=== PATIENT | female | born 1980 | race Caucasian/White ===

== ENCOUNTER 2024-12-03 09:00 | Outpatient (CLI) | payer MEDICARE, MEDICAID, SELFPAY ==
--- OUTSIDE RECORDS SUMMARY | 2024-12-03 09:37 | XMS_ITS | Encounter Summary ---
Author Organization [facility] Address [address] [place] [address] Phone Care Team Providers Care Club Waiter/Waitress Name Role Phone Provider, Unknown Primary Care Provider Unavaila ble Encounter Details Date Type Department Care Team (Late st Contact Info) Description 09/04/2024 Lab Requisition [facility] Laboratory Services 1 [place] [address] Yevgeniy Lea MD [address] [place] [address] [address] [place] [address] Mild intellectual disabilities; Obesity, unspecified; Hyperlipidemia, unspecified Social History Tobacco Use Types Packs/Day Years Used Date Smoking Tobacco: Never Assessed Comments Unknown Sex and Gender Information Value Date Recorded Sex Assigned at Not on file Legal Sex Female 7:32 AM CRIMINAL JUSTICE SOCIAL WORKER Gender Identity Not on file Sexual Orientation Not on file documented as of this encounter Plan of Treatment Not on file documented as of this encounter Procedures Procedure Name Priority Date/Time Associated Diagnosis Comments HEMOGLOBIN A1C W/ ESTIMATED GLUCOSE Routine 09/04/2024 6:23 AM CRIMINAL JUSTICE SOCIAL WORKER Mild intellectual disabilities Obesity, unspecified Hyperlipidemia, unspecified CBC WITH AUTO DIFFERENTIAL Routine 09/04/2024 6:23 AM CRIMINAL JUSTICE SOCIAL WORKER Mild intellectual disabilities Obesity, unspecified Hyperlipidemia, unspecified THYROID STIMULATING HORMONE (TSH) Routine 09/04/2024 6:23 AM CRIMINAL JUSTICE SOCIAL WORKER Mild intellectual disabilities Obesity, unspecified Hyperlipidemia, unspecified LIPID PANEL Routine 09/04/2024 6:23 AM CRIMINAL JUSTICE SOCIAL WORKER Mild intellectual disabilities Obesity, unspecified Hyperlipidemia, unspecified CMP (COMPREHENSIVE METABOLIC PANEL) Routine 09/04/2024 6:23 AM CRIMINAL JUSTICE SOCIAL WORKER Mild intellectual disabilities Obesity, unspecified Hyperlipidemia, unspecified COMPLETE BLOOD COUNT (CBC) WITH DIFF Routine 09/04/2024 6:23 AM CRIMINAL JUSTICE SOCIAL WORKER Mild intellectual disabilities Obesity, unspecified Hyperlipidemia, unspecified documented in this encounter Results * (ABNORMAL) CBC WITH AUTO DIFFERENTIAL (09/04/2024 6:23 AM CRIMINAL JUSTICE SOCIAL WORKER) WBC 8.37 4.00 - 12.00 10(3)/mcL 09/04/2024 7:45 AM [facility] RBC 4.18 3.80 - 5.30 10(6)/mcL 09/04/2024 7:45 AM [facility] HEMOGLOBIN (HGB) 11.9(L) 12.0 - 15.8 g/dL 09/04/2024 7:45 AM [facility] HEMATOCRIT (HCT) 35.7(L) 36.0 - 47.0 % 09/04/2024 7:45 AM [facility] MCV 85.4 82.0 - 96.0 fL 09/04/2024 7:45 AM [facility] MCH 28.5 26.0 - 34.0 pg 09/04/2024 7:45 AM [facility] MCHC 33.3 31.0 - 36.0 g/dL 09/04/2024 7:45 AM [facility] PLATELET COUNT 297 140 - 440 10(3)/mcL 09/04/2024 7:45 AM [facility] RDW 13.1 11.8 - 15.5 % 09/04/2024 7:45 AM [facility] MPV 9.4(L) 9.7 - 12.4 fL 09/04/2024 7:45 AM [facility] NEUTROPHILS 65.6 47.0 - 73.0 % 09/04/2024 7:45 AM [facility] LYMPHOCYTES 25.8 18.0 - 42.0 % 09/04/2024 7:45 AM CRIMINAL JUSTICE SOCIAL WORKER [facility] MONOCYTES 5.9 4.0 - 12.0 % 09/04/2024 7:45 AM [facility] EOSINOPHILS 2.3 0.0 - 5.0 % 09/04/2024 7:45 AM [facility] BASOPHILS 0.4 0.0 - 1.0 % 09/04/2024 7:45 AM [facility] ABSOLUTE NEUTROPHILS 5.50 1.60 - 7.70 10(3)/[facility] 09/04/2024 7:45 AM [facility] ABSOLUTE LYMPHOCYTES 2.16 1.30 - 3.20 10(3)/[facility] 09/04/2024 7:45 AM [facility] ABSOLUTE MONOCYTES 0.49 0.20 - 1.00 10(3)/[facility] 09/04/2024 7:45 AM [facility] ABSOLUTE EOSINOPHIL 0.19 0.00 - 0.40 10(3)/[facility] 09/04/2024 7:45 AM [facility] ABSOLUTE BASOPHILS 0.03 0.00 - 0.10 10(3)/[facility] 09/04/2024 7:45 AM [facility] NRBC PER 100 WBC 0 09/04/19 7:45 AM [facility] Blood Venipuncture / Unknown 09/04/2024 6:23 AM CRIMINAL JUSTICE SOCIAL WORKER 09/04/2024 7:[address] [facility] us Yevgeniy Lea MD HEMATOLOGY ORDERABLES Final Re sult [facility] #1 [place] [address] * THYROID STIMULATING HORMONE (TSH) (09/04/2024 6:[address] [facility]) TSH 1.673 0.300 - 5.000 mIU/L 09/04/2024 8:24 AM [facility] Blood Venipuncture / Unknown 09/04/2024 6:23 AM CRIMINAL JUSTICE SOCIAL WORKER 09/04/2024 7:36 AM CRIMINAL JUSTICE SOCIAL WORKER Yevgeniy Lea MD CHEMISTRY ORDERABLES Final Res ult Performing Organization Address [facility] Co de Phone Number [facility] [address] [place] [address] * HEMOGLOBIN A1C W/ ESTIMATED GLUCOSE (09/04/2024 6:23 AM CRIMINAL JUSTICE SOCIAL WORKER) HGB-A1C 5.4 4.0 - 6.0 % 09/04/2024 9:17 AM CRIMINAL JUSTICE SOCIAL WORKER [facility] Est Average Glucose 108.3 mg/dL 09/04/2024 9:17 AM CRIMINAL JUSTICE SOCIAL WORKER [facility] Blood Venipuncture / Unknown 09/04/2024 6:23 AM CRIMINAL JUSTICE SOCIAL WORKER 09/04/2024 7:36 AM CRIMINAL JUSTICE SOCIAL WORKER Narrative [facility] - 09/04/2024 9:17 AM CRIMINAL JUSTICE SOCIAL WORKER HEMOGLOBIN A1C: DIABETIC PATIENTS: WELL-CONTROLLED: 6.2 - 7.0 INTERMEDIATE WELL-CONTROLLED: 7.0 - 9.0 POORLY-CONTROLLED: >9.0 Specimens containing greater than 5% of Hemoglobin F may result in lower than expected % HbA1C results. Yevgeniy Lea MD CHEMISTRY ORDERABLES Final Res ult Performing Organization Address [facility] Co de Phone Number [facility] [address] [place] [address] * LIPID PANEL (09/04/2024 6:23 AM CRIMINAL JUSTICE SOCIAL WORKER) CHOLESTEROL 125 <200 mg/dL 09/04/2024 8:06 AM CRIMINAL JUSTICE SOCIAL WORKER [facility] TRIGLYCERIDES 66 <150 mg/dL 09/04/2024 8:06 AM CRIMINAL JUSTICE SOCIAL WORKER [facility] HDL CHOLESTEROL 54 >40 mg/dL 8:06 AM CRIMINAL JUSTICE SOCIAL WORKER [facility] LDL 58 <130 mg/dL 09/04/2024 8:06 AM CRIMINAL JUSTICE SOCIAL WORKER [facility] VLDL 13 10 - 50 mg/dL 09/04/2024 8:06 AM [facility] CHOL/HDL RATIO 2.3 0.0 - 4.4 09/04/2024 8:06 AM [facility] NON-HDL CHOLESTEROL 71 <130 mg/dL 09/04/2024 8:06 AM [facility] Blood Venipuncture / Unknown 09/04/2024 6:23 AM CRIMINAL JUSTICE SOCIAL WORKER 09/04/2024 7:[address] [facility] us Yevgeniy Lea MD CHEMISTRY ORDERABLES Final Res ult [facility] [address] [place] [address] * (ABNORMAL) CMP (COMPREHENSIVE METABOLIC PANEL) (09/04/2024 6:23 AM CRIMINAL JUSTICE SOCIAL WORKER) SODIUM 141 136 - 145 mmol/L 09/04/2024 8:06 AM [facility] POTASSIUM 4.2 3.5 - 5.1 mmol/L 09/04/2024 8:06 AM [facility] CHLORIDE 105 98 - 107 mmol/L 09/04/2024 8:06 AM [facility] CO2, VENOUS 26 22 - 30 mmol/L 09/04/2024 8:06 AM [facility] ANION GAP 14.2 <18.0 mmol/L 09/04/2024 8:06 AM [facility] GLUCOSE 102(H) 70 - 99 mg/dL 09/04/2024 8:06 AM [facility] BUN 15 5 - 18 mg/dL 09/04/2024 8:06 AM [facility] CREATININE, BLOOD 0.91 0.60 - 1.00 mg/dL 09/04/2024 8:06 AM [facility] BUN/CREATININE RATIO 16 12 - 20 ratio 09/04/2024 8:06 AM [facility] TOTAL PROTEIN 7.2 6.0 - 8.0 g/dL 09/04/2024 8:06 AM [facility] ALBUMIN 4.3 3.5 - 5.0 g/dL 09/04/2024 8:06 AM [facility] A/G RATIO 1.5 1.0 - 2.2 09/04/2024 8:06 AM [facility] CALCIUM 9.4 8.7 - 10.5 mg/dL 09/04/2024 8:06 AM [facility] T BILI 0.6 0.2 - 1.2 mg/dL 09/04/2024 8:06 AM [facility] SGOT (AST) 32 6 - 42 U/L 09/04/2024 8:06 AM [facility] SGPT (ALT) 26 6 - 55 U/L 09/04/2024 8:06 AM [facility] ALKALINE PHOSPHATASE 75 40 - 150 U/L 09/04/2024 8:06 AM [facility] GFR, ESTIMATED >60 >=60 09/04/2024 8:06 AM [facility] Comment: Creatinine Clearance is the preferred criteria for selecting drug dose adjustments in renally impaired patients. The GFR is provided as additional pertinent clinical information. GFR is reported in mL/min/1.73 sq m. Calculation based on the Chronic Kidney Disease Epidemiology Collaboration (CKD- EPI) equation refit without adjustment for race. GFR, EST. >60 >=60 025 8:06 AM [facility] GFR, EST. NONAFRICAN >60 >=60 09/04/2024 8:06 AM [facility] Blood Venipuncture / Unknown 09/04/2024 6:23 AM CRIMINAL JUSTICE SOCIAL WORKER 09/04/2024 7:[address] [facility] us Yevgeniy Lea MD CHEMISTRY ORDERABLES Final Res ult [facility]1 [place] [address] documented in this encounter Visit Diagnoses Diagnosis Mild intellectual disabilities Obesity, unspecified Hyperlipidemia, unspecified documented in this encounter Additional Health Concerns Infection Onset Date Last Indicated Resolved Time Respiratory Rule-Out 09/10/2024 09/10/2024 025 12:16 AM CRIMINAL JUSTICE SOCIAL WORKER documented as of this encounter Care Teams Club Waiter/Waitress Relationship Specialty Start Date End Date Provider, Unknown UNKNOWN PCP - General 09/10/24 documented as of this encounter
--- OUTSIDE RECORDS SUMMARY | 2024-12-03 09:37 | XMS_ITS | Clinical Summary ---
Author Organization [facility] Address [address]1 [place] [address] Phone Care Team Providers Care Customer Development Representative Name Role Phone Provider, Unknown Primary Care Provider Unavaila ble Encounters Date Type Department Care Team Description 09/10/2024 [facility] 1 [place] [address] Yevgeniy Lea MD Contact with and (suspected) exposure to unspecified communicable disease; Acute cough 09/10/2024 Lab Requisition [facility] Laboratory Services 1 [place] [address] Yevgeniy Lea MD Contact with and (suspected) exposure to unspecified communicable disease; Acute cough 09/04/2024 Lab Requisition [facility] Laboratory Services 1 [place] [address] Yevgeniy Lea MD Mild intellectual disabilities; Obesity, unspecified; Hyperlipidemia, unspecified from Last 3 Months Social History Tobacco Use Types Packs/Day Years Used Date Smoking Tobacco: Never Assessed Comments Unknown Sex and Gender Information Value Date Recorded Sex Assigned at Not on file Legal Sex Female 7:32 AM STONE CARVER Gender Identity Not on file Sexual Orientation Not on file Plan of Treatment Not on file Procedures Procedure Name Priority Date/Time Associated Diagnosis Comments RSV,SARS-COV-2,INFLUE NZA A&B BY PCR Routine 09/10/2024 6:35 AM STONE CARVER Contact with and (suspected) exposure to unspecified communicable disease Acute cough CBC WITH AUTO DIFFERENTIAL Routine 09/04/2024 6:23 AM STONE CARVER Mild intellectual disabilities Obesity, unspecified Hyperlipidemia, unspecified COMPLETE BLOOD COUNT (CBC) WITH DIFF Routine 09/04/2024 6:23 AM STONE CARVER Mild intellectual disabilities Obesity, unspecified Hyperlipidemia, unspecified THYROID STIMULATING HORMONE (TSH) Routine 09/04/2024 6:23 AM STONE CARVER Mild intellectual disabilities Obesity, unspecified Hyperlipidemia, unspecified HEMOGLOBIN A1C W/ ESTIMATED GLUCOSE Routine 09/04/2024 6:23 AM STONE CARVER Mild intellectual disabilities Obesity, unspecified Hyperlipidemia, unspecified LIPID PANEL Routine 09/04/2024 6:23 AM STONE CARVER Mild intellectual disabilities Obesity, unspecified Hyperlipidemia, unspecified CMP (COMPREHENSIVE METABOLIC PANEL) Routine 09/04/2024 6:23 AM STONE CARVER Mild intellectual disabilities Obesity, unspecified Hyperlipidemia, unspecified from Last 3 Months Results * RSV,SARS-COV-2,INFLUENZA A&B BY PCR (09/10/2024 6:35 AM STONE CARVER) FLU A Negative Negative, Error 09/10/2024 11:00 AM STONE CARVER [facility] FLU B Negative Negative 09/10/2024 11:00 AM STONE CARVER [facility] RESP SYNC VIRUS Negative Negative 11:00 AM STONE CARVER [facility] SARSCOV2 NOT DETECTED (Reference Range for this test is Not Detected) 09/10/2024 11:00 AM STONE CARVER [facility] Comment:This test was perfor med by a Reverse Cotton Presser PCR Method. Swab Non-Phlebotomy Collection / Unknown 09/10/2024 6:35 AM STONE CARVER 09/10/2024 7:57 AM STONE CARVER us Yevgeniy Lea MD MICROBIOLOGY - GENERAL ORDERAB LES Final Result [facility] #1 [place] [address] * HEMOGLOBIN A1C W/ ESTIMATED GLUCOSE (09/04/2024 6:23 AM STONE CARVER) [facility] HGB-A1C 5.4 4.0 - 6.0 % 09/04/2024 9:17 AM [facility] Est Average Glucose 108.3 mg/dL 09/04/2024 9:17 AM [facility] Blood Venipuncture / Unknown 09/04/2024 6:23 AM STONE CARVER 09/04/2024 7:36 AM STONE CARVER Narrative [facility] - 09/04/2024 9:17 AM STONE CARVER HEMOGLOBIN A1C: DIABETIC PATIENTS: WELL-CONTROLLED: 6.2 - 7.0 INTERMEDIATE WELL-CONTROLLED: 7.0 - 9.0 POORLY-CONTROLLED: >9.0 Specimens containing greater than 5% of Hemoglobin F may result in lower than expected % HbA1C results. us Yevgeniy Lea MD CHEMISTRY ORDERABLES Final Res ult [facility] [address] [place] [address] * (ABNORMAL) CBC WITH AUTO DIFFERENTIAL (09/04/2024 6:23 AM STONE CARVER) [facility] WBC 8.37 4.00 - 12.00 10(3)/mcL 09/04/2024 7:45 AM [facility] RBC 4.18 3.80 - 5.30 10(6)/[facility] 09/04/2024 7:45 AM [facility] HEMOGLOBIN (HGB) 11.9(L) 12.0 - 15.8 g/dL 09/04/2024 7:45 AM [facility] HEMATOCRIT (HCT) 35.7(L) 36.0 - 47.0 % 09/04/2024 7:45 AM [facility] MCV 85.4 82.0 - 96.0 fL 09/04/2024 7:45 AM [facility] MCH 28.5 26.0 - 34.0 pg 09/04/2024 7:45 AM [facility] MCHC 33.3 31.0 - 36.0 g/dL 09/04/2024 7:45 AM [facility] PLATELET COUNT 297 140 - 440 10(3)/[facility] 09/04/2024 7:45 AM [facility] RDW 13.1 11.8 - 15.5 % 09/04/2024 7:45 AM [facility] MPV 9.4(L) 9.7 - 12.4 fL 09/04/2024 7:45 AM [facility] NEUTROPHILS 65.6 47.0 - 73.0 % 09/04/2024 7:45 AM [facility] LYMPHOCYTES 25.8 18.0 - 42.0 % 09/04/2024 7:45 AM [facility] MONOCYTES 5.9 4.0 - 12.0 % 09/04/2024 7:45 AM [facility] EOSINOPHILS 2.3 0.0 - 5.0 % 09/04/2024 7:45 AM [facility] BASOPHILS 0.4 0.0 - 1.0 % 09/04/2024 7:45 AM [facility] ABSOLUTE NEUTROPHILS 5.50 1.60 - 7.70 10(3)/[facility] 09/04/2024 7:45 AM [facility] ABSOLUTE LYMPHOCYTES 2.16 1.30 - 3.20 10(3)/[facility] 09/04/2024 7:45 AM [facility] ABSOLUTE MONOCYTES 0.49 0.20 - 1.00 10(3)/[facility] 09/04/2024 7:45 AM [facility] ABSOLUTE EOSINOPHIL 0.19 0.00 - 0.40 10(3)/[facility] 09/04/2024 7:45 AM [facility] ABSOLUTE BASOPHILS 0.03 0.00 - 0.10 10(3)/[facility] 09/04/2024 7:45 AM [facility] NRBC PER 100 WBC 0 09/04/19 7:45 AM [facility] Blood Venipuncture / Unknown 09/04/2024 6:23 AM STONE CARVER 09/04/2024 7:36 AM STONE CARVER Yevgeniy eLa MD HEMATOLOGY ORDERABLES Final Re sult Performing Organization Address City/[facility]/ZIP Co de Phone Number [facility] [address] [place] [address] * THYROID STIMULATING HORMONE (TSH) (09/04/2024 6:23 AM STONE CARVER) TSH 1.673 0.300 - 5.000 mIU/L 09/04/2024 8:24 AM STONE CARVER [facility] Blood Venipuncture / Unknown 09/04/2024 6:23 AM STONE CARVER 09/04/2024 7:36 AM STONE CARVER Yevgeniy Lea MD CHEMISTRY ORDERABLES Final Res ult Performing Organization Address City/[facility]/ZIP Co de Phone Number [facility] [address] [place] [address] * LIPID PANEL (09/04/2024 6:23 AM STONE CARVER) CHOLESTEROL 125 <200 mg/dL 09/04/2024 8:06 AM STONE CARVER [facility] TRIGLYCERIDES 66 <150 mg/dL 09/04/2024 8:06 AM STONE CARVER [facility] HDL CHOLESTEROL 54 >40 mg/dL 8:06 AM STONE CARVER [facility] LDL 58 <130 mg/dL 09/04/2024 8:06 AM STONE CARVER [facility] VLDL 13 10 - 50 mg/dL 09/04/2024 8:06 AM STONE CARVER [facility] CHOL/HDL RATIO 2.3 0.0 - 4.4 09/04/2024 8:06 AM STONE CARVER [facility] NON-HDL CHOLESTEROL 71 <130 mg/dL 09/04/2024 8:06 AM [facility] Blood Venipuncture / Unknown 09/04/2024 6:23 AM STONE CARVER 09/04/2024 7:36 AM STONE CARVER us Yevgeniy Lea MD CHEMISTRY ORDERABLES Final Res ult [facility] [address] [place] [address] * (ABNORMAL) CMP (COMPREHENSIVE METABOLIC PANEL) (09/04/2024 6:23 AM STONE CARVER) SODIUM 141 136 - 145 mmol/L 09/04/2024 8:06 AM [facility] POTASSIUM 4.2 3.5 - 5.1 mmol/L 09/04/2024 8:06 AM [facility] CHLORIDE 105 98 - 107 mmol/L 09/04/2024 8:06 AM [facility] CO2, VENOUS 26 22 - 30 mmol/L 09/04/2024 8:06 AM [facility] ANION GAP 14.2 <18.0 mmol/L 09/04/2024 8:06 AM [facility] GLUCOSE 102(H) 70 - 99 mg/dL 09/04/2024 8:06 AM [facility] BUN 15 5 - 18 mg/dL 09/04/2024 8:06 AM [facility] CREATININE, BLOOD 0.91 0.60 - 1.00 mg/dL 09/04/2024 8:06 AM [facility] BUN/CREATININE RATIO 16 12 - 20 ratio 09/04/2024 8:06 AM [facility] TOTAL PROTEIN 7.2 6.0 - 8.0 g/dL 09/04/2024 8:06 AM [facility] ALBUMIN 4.3 3.5 - 5.0 g/dL 09/04/2024 8:06 AM [facility] A/G RATIO 1.5 1.0 - 2.2 09/04/2024 8:[address] [facility] CALCIUM 9.4 8.7 - 10.5 mg/dL 09/04/2024 8:[address] [facility] T BILI 0.6 0.2 - 1.2 mg/dL 09/04/2024 8:[address] [facility] SGOT (AST) 32 6 - 42 U/L 09/04/2024 8:[address] [facility] SGPT (ALT) 26 6 - 55 U/L 09/04/2024 8:[address] [facility] ALKALINE PHOSPHATASE 75 40 - 150 U/L 09/04/2024 8:[address] [facility] GFR, ESTIMATED >60 >=60 09/04/2024 8:06 AM [facility] Comment: Creatinine Clearance is the preferred criteria for selecting drug dose adjustments in renally impaired patients. The GFR is provided as additional pertinent clinical information. GFR is reported in mL/min/1.73 sq m. Calculation based on the Chronic Kidney Disease Epidemiology Collaboration (CKD- EPI) equation refit without adjustment for race. GFR, EST. >60 >=60 025 8:06 AM [facility] GFR, EST. NONAFRICAN >60 >=60 09/04/2024 8:06 AM [facility] Blood Venipuncture / Unknown 09/04/2024 6:23 AM STONE CARVER 09/04/2024 7:36 AM STONE CARVER us Yevgeniy Lea MD CHEMISTRY ORDERABLES Final Res ult [facility] [address] [place] [address] from Last 3 Months Insurance MEDICAID [place] Care Teams Customer Development Representative Relationship Specialty Start Date End Date Provider, Unknown UNKNOWN PCP - General 09/10/24
--- OUTSIDE RECORDS SUMMARY | 2024-12-03 09:37 | XMS_ITS | Encounter Summary ---
Author Organization [facility] Address [address] [place] [address] Phone Care Team Providers Care Bricklayer Supervisor Name Role Phone Provider, Unknown Primary Care Provider Unavaila ble Encounter Details Date Type Department Care Team (Late st Contact Info) Description 09/10/2024 Lab Requisition [facility] Laboratory Services 1 [place] [address] Yevgeniy Lea MD [address] [place] [address] [place] [address] Contact with and (suspected) exposure to unspecified communicable disease; Acute cough Social History Tobacco Use Types Packs/Day Years Used Date Smoking Tobacco: Never Assessed Comments Unknown Sex and Gender Information Value Date Recorded Sex Assigned at Not on file Legal Sex Female 7:32 AM MEDICAL INTERN Gender Identity Not on file Sexual Orientation Not on file documented as of this encounter Plan of Treatment Not on file documented as of this encounter Procedures Procedure Name Priority Date/Time Associated Diagnosis Comments RSV,SARS-COV-2,INF LUENZA A&B BY PCR Routine 09/10/2024 6:35 AM MEDICAL INTERN Contact with and (suspected) exposure to unspecified communicable disease Acute cough documented in this encounter Results * RSV,SARS-COV-2,INFLUENZA A&B BY PCR (09/10/2024 6:35 AM MEDICAL INTERN) FLU A Negative Negative, Error 09/10/2024 11:00 AM MEDICAL INTERN [facility] FLU B Negative Negative 09/10/2024 11:00 AM MEDICAL INTERN [facility] RESP SYNC VIRUS Negative Negative 11:00 AM MEDICAL INTERN [facility] SARSCOV2 NOT DETECTED (Reference Range for this test is Not Detected) 09/10/2024 11:00 AM MEDICAL INTERN [facility] Comment:This test was perfor med by a Reverse Medical Transport Specialist PCR Method. Swab Non-Phlebotomy Collection / Unknown 09/10/2024 6:35 AM MEDICAL INTERN 09/10/2024 7:57 AM MEDICAL INTERN us Yevgeniy Lea MD MICROBIOLOGY - GENERAL ORDERAB LES Final Result [facility] [address] [place] [address] documented in this encounter Visit Diagnoses Diagnosis Contact with and (suspected) exposure to unspecified communicable disease Acute cough documented in this encounter Additional Health Concerns Infection Onset Date Last Indicated Resolved Time Respiratory Rule-Out 09/10/2024 09/10/2024 025 12:16 AM MEDICAL INTERN documented as of this encounter Care Teams Bricklayer Supervisor Relationship Specialty Start Date End Date Provider, Unknown UNKNOWN PCP - General 09/10/24 documented as of this encounter
--- OUTSIDE RECORDS SUMMARY | 2024-12-03 09:37 | XMS_ITS | Encounter Summary ---
Author Organization [facility] Address [address] [place] [address] Phone Care Team Providers Care Dope Heater Name Role Phone Provider, Unknown Primary Care Provider Unavaila ble Encounter Details Date Type Department Care Team (Late st Contact Info) Description 09/10/[address] [facility] Laboratory Services [address] [place] [address] Yevgeniy Lea MD [address] [place] [address] [address] [place] [address] Contact with and (suspected) exposure to unspecified communicable disease; Acute cough Social History Tobacco Use Types Packs/Day Years Used Date Smoking Tobacco: Never Assessed Comments Unknown Sex and Gender Information Value Date Recorded Sex Assigned at Not on file Legal Sex Female 7:32 AM HEATING ELEMENT BUILDER Gender Identity Not on file Sexual Orientation Not on file documented as of this encounter Plan of Treatment Not on file documented as of this encounter Visit Diagnoses Diagnosis Contact with and (suspected) exposure to unspecified communicable disease Acute cough documented in this encounter Additional Health Concerns Infection Onset Date Last Indicated Resolved Time Respiratory Rule-Out 09/10/2024 09/10/2024 025 12:16 AM HEATING ELEMENT BUILDER documented as of this encounter Care Teams Dope Heater Relationship Specialty Start Date End Date Provider, Unknown UNKNOWN PCP - General 09/10/24 documented as of this encounter
== END 2024-12-03 09:01 | disposition home or self-care (01) ==
LOC: ANHBWCAUD 09:01
PROVIDERS: PCP Family Medicine; Visit Provider Family Medicine
DX: H91.3 Deaf nonspeaking, not elsewhere classified (principal)
CPT/HCPCS: 92557; 92567